=== PATIENT | female | born 1975 | race African-American/Black ===

== ENCOUNTER 2020-05-23 00:46 | Emergency (ER) | payer MEDICAID ==
[~2020-05-23] VITALS: Ht 175.3 cm; Wt 69.0 kg
[2020-05-23] MEDS ORDERED: MORPHINE SULFATE 4 MG/ML CPJ (NOT FOR IM USE) IV STA (00:49)
[2020-05-23] MEDS ORDERED: ONDANSETRON HCL 4MG/2ML INJ IV STA (00:49)
[2020-05-23] MEDS ORDERED: SODIUM CHLORIDE 0.9% 1,000 ML IV ONE (00:49)
[2020-05-23] MEDS ORDERED: CEFAZOLIN 1000MG PREMIX 50 ML IV ONE (01:00)
[2020-05-23] MEDS ORDERED: TETANUS, DIPHTHERIA, PERTUSSIS VAC/PF 0.5ML (>7YR OLD) IM ONE (01:00)
[2020-05-23 01:17] LABS: BASOPHILS % 0.8 % (0.0-2.0); EOSINOPHILS % 1.4 % (0.0-5.0); HEMATOCRIT. 39.6 % (36.0-48.0); HEMOGLOBIN. 13.3 g/dL (12.0-16.0); LYMPHOCYTES % 32.4 % (20.0-50.0); MEAN CORPUSCULAR HEMOGLOBIN 28.1 pg (28.0-32.0); MEAN CORPUSCULAR VOLUME 83.7 fL (81.0-99.0); MEAN PLATELET VOLUME 9.5 fl (7.4-10.4); MONOCYTES % 4.4 % (2.0-8.0); PLATELET 282 x1000/uL (130-400); RED BLOOD CELL COUNT 4.73 mill/uL (4.2-5.4); RED CELL DISTRIBUTION WIDTH 13.7 % (11.6-14.6)
[2020-05-23 01:23] LABS: CHLORIDE 105 mEq/L (98-107)
[2020-05-23] MEDS ORDERED: BACITRACIN ZINC OINT UDPKT TOP ONE (03:15)
[2020-05-23 03:46] VITALS: BP 121/83
== END 2020-05-23 03:52 | disposition home or self-care (01) ==
LOC: ER 00:46
DX: T14.8XXA Other injury of unspecified body region, initial encounter (principal); W34.09XA Accidental discharge from other specified firearms, initial encounter; Y93.89 Activity, other specified; Y92.89 Other specified places as the place of occurrence of the external cause; Y99.8 Other external cause status; F17.290 Nicotine dependence, other tobacco product, uncomplicated
CPT/HCPCS: 36415; 73552; 73560; 73590; 80053; 85025; 90471; 90715; 93005; 96365; 99285; J0690; J7030